=== PATIENT | female | born 1950 | race Caucasian/White ===

== ENCOUNTER → 2016-08-22 | Outpatient (CLI) | payer MEDICARE ==
[~2016-08-22] MED LIST: ALPR-475 PO; ASPI325T80 PO; CALC-72 PO; CALCIUM PO; CARV-39 PO; CHOL200024 PO; IBUP200C8 PO; LEVO137T3 PO; LISI-170 PO; OXYC-74 PO; OXYC5TAB3 PO; SUMA100T3 PO; ZINC PO
== END | disposition home or self-care (01) ==
LOC: CFH 09:37
PROVIDERS: ATTEND Family Medicine
DX: Z12.31 Encounter for screening mammogram for malignant neoplasm of breast (principal); Z85.3 Personal history of malignant neoplasm of breast; Z92.3 Personal history of irradiation; Z98.890 Other specified postprocedural states
CPT/HCPCS: G0202